=== PATIENT | male | born 1985 | race Caucasian/White ===

== ENCOUNTER 2018-09-15 10:02 | Emergency (ER) | payer OTHER ==
[2018-09-15 10:12] VITALS: BP 126/94
--- NOTE | 2018-09-15 10:27 | EDPHY ---
H & P Stated Complaint: hurt self lifting at work on Wednesday . pain lower and middle back Time Seen by Provider: 09/15/18 10:10 HPI/ROS: Chief Complaint: Back pain HPI: 33-year-old male who pulled his back while lifting heavy pallets 2 days ago. He has had been having dull aching back pain in his middle lower back since. No new numbness or weakness. No difficulty urinating. No difficulty ambulating. He has been taking 400 mg of ibuprofen occasionally with no significant relief. He has also been trying arrested. No fevers or chills. No history of IV drug abuse. ROS: 10 systems were reviewed and were negative except those elements noted in the HPI. PMH: Denies Social History: No smoking, no alcohol, no recreational drug use Family History: non-contributory Physical Exam: Gen: Awake, Alert, No Distress HEENT: Nose: no rhinorrhea Eyes: PERRLA, EOMI Mouth: Moist mucosa Neck: Supple, no JVD Back: no CVA tenderness, no midline tenderness, bilateral paraspinal lower thoracic and lumbar palpable spasm Ext: no edema, non-tender Skin: no rash Neuro: CN II-XII intact, Sensation grossly intact, Strength 5/5 in bilateral upper and lower extremities, 2+ deep tendon reflexes, normal plantar and dorsiflexion - Personal History Current Tetanus/Diphtheria Vaccine: Unsure Current Tetanus Diphtheria and Acellular Pertussis (TDAP): Unsure - Medical/Surgical History Other PMH: alcohol syndrome. ADHD. Mild intellectual disabilities. Bipolar - Social History Smoking Status: Former smoker Constitutional: Initial Vital Signs Temperature (C) 37.1 C 09/15/18 10:07 Heart Rate 75 09/15/18 10:07 Respiratory Rate 16 09/15/18 10:07 Blood Pressure 126/94 H 09/15/18 10:07 O2 Sat (%) 100 09/15/18 10:07 O2 Delivery Mode Room Air Allergies/Adverse Reactions: Penicillins Allergy (Verified 09/15/18 10:12) Sulfa (Sulfonamide Antibiotics) Allergy (Verified 09/15/18 10:12) Home Medications: Medication Instructions Recorded Cetirizine HCl 09/15/18 Depakote ER 500 MG (*) 09/15/18 Vitamin D2 09/15/18 medroxyPROGESTERone 09/15/18 Medical Decision Making ED Course/Re-evaluation: 33-year-old with low back spasm. No red flags for acute neurologic or infectious process. Will given the faiza Sánchez back pain instructions and follow up with primary in about a week. Departure - Departure Disposition: Home, Routine, Self-Care Clinical Impression: Lumbar strain Condition: Good Instructions: Low Back Strain (ED), Lower Back Exercises (ED) Additional Instructions: Take ibuprofen, 600 mg, 3 times a day. You may also take acetaminophen, 1000 mg every 8 hours. You may replace a Lidoderm patch every 24 hr, these are available over-the- counter. Apply ice for 15 minutes of every hour while awake. Make sure to remain active. Did do not lay in bed or sit in a chair for long periods. Avoid heavy lifting or bending at work until cleared by your physician. Please see the attached back exercise instructions. Follow up with your primary care physician in 4-5 days for further evaluation. Referrals: JOCY WONG [Other] - As per Instructions
[2018-09-15] MEDS ORDERED: LIDOCAINE 4%/MENTHOL 1% PATCH TD ONE (10:34)
[2018-09-15] MEDS ORDERED: IBUPROFEN 600 MG TAB PO ONE (10:34)
== END 2018-09-15 10:49 | disposition home or self-care (01) ==
LOC: CED 10:02
DX: S39.012A Strain of muscle, fascia and tendon of lower back, initial encounter (principal); Z87.891 Personal history of nicotine dependence; X50.0XXA Overexertion from strenuous movement or load, initial encounter; Y92.9 Unspecified place or not applicable; Y93.9 Activity, unspecified; Y99.9 Unspecified external cause status